=== PATIENT | male | born 1985 | race Caucasian/White ===

== ENCOUNTER 2020-08-27 09:03 | Emergency (ER) | payer OTHER ==
[~2020-08-27] VITALS: Ht 193 cm; Wt 95.5 kg
[2020-08-27 09:16] VITALS: BP 134/79
--- NOTE | 2020-08-27 09:25 | PHYS DOC ---
Past History Past Medical History: No Pertinent History Past Surgical History: No Surgical History Alcohol Use: None General Adult EDM: Chief Complaint: HAND PROBLEM HPI: HPI: Patient is a 35-year-old male coming in for right hand pain. Patient slipped on ice and caught himself with his right hand just prior to arrival. Patient is right-handed. Says he has some pain in his shoulder but is minimal. Has been icing his hand and complaining of the pain over the fourth and fifth met acarpals. Has a small abrasion to the lateral aspect of his fourth finger, patient states his tetanus is up-to-date within the last 5 years Review of Systems: Review of Systems: All other systems within normal limits except for as noted in the HPI Allergies: Allergies: Allergies Coded Allergies Type Severity Reaction Last Updated Verified No Known Drug Allergies 08/27/20 No Physical Exam: PE: Constitutional: Well developed, well nourished, no acute distress, non-toxic appearance. [] HENT: Normocephalic, atraumatic, bilateral external ears normal, nose normal. [] Eyes: PERRLA, conjunctiva normal, no discharge. [] Neck: No rigidity, supple, no stridor. [] Cardiovascular: Regular rate and rhythm, brisk cap refill [] Lungs & Thorax: Non labored symmetric respirations, no tachypnea or respiratory distress [] Abdomen: Soft, nondistended. Skin: Warm, dry, no erythema, no rash. Small abrasion to right fourth finger [] Extremities: No deformities, range of motion grossly intact, no lower extremity edema. Full range of motion of right hand, tenderness over fourth and fifth metacarpals. No shortening of fourth or fifth knuckles when making a fist. [] Neurologic: Alert and oriented X 3, no focal deficits noted. [] Psychologic: Affect normal, judgement normal, mood normal. [] Current Patient Data: Vital Signs: Vital Signs Date Time Temp Pulse Resp B/P (MAP) Pulse Ox O2 Delivery O2 Flow Rate FiO2 08/27/20 09:16 50 18 134/79 (97) 97 EKG: EKG: [] Radiology/Procedures: Radiology/Procedures: PROCEDURE: HAND RIGHT 3V PROCEDURE: XR HAND_RIGHT 3 VIEWS STUDY DATE: 08/27/2020 CLINICAL INDICATION / HISTORY: Reason: fall, 4th and 5th metacarpal pain / Spl. Instructions: / History: . TECHNIQUE: PA, lateral and oblique views of the right hand. COMPARISON: None FINDINGS: An oblique fracture through the shaft of the fourth metacarpal is present with minimal displacement. Otherwise, no fracture or dislocation is identified. The bone density is normal. The joint spaces are maintained, and there are no erosions to suggest an inflammatory arthropathy. The soft tissues show minimal associated soft tissue swelling.. IMPRESSION: Acute oblique fracture through the fourth metacarpal shaft with minimal displacement.[] Heart Score: Risk Factors: Risk Factors: DM, Current or recent (<one month) smoker, HTN, HLP, family history of CAD, obesity. Risk Scores: Score 0 - 3: 2.5% MACE over next 6 weeks - Discharge Home Score 4 - 6: 20.3% MACE over next 6 weeks - Admit for Clinical Observation Score 7 - 10: 72.7% MACE over next 6 weeks - Early Invasive Strategies Course & Med Decision Making: Course & Med Decision Making Discussed options for splinting versus anette taping for uncomplicated metacarpal fracture. Patient opted for anette taping. Will follow up with his primary care Zaida Disclaimer: Zaida Disclaimer: This electronic medical record was generated, in whole or in part, using a voice recognition dictation system. Departure Departure: Impression: Primary Impression: Fracture of fourth metacarpal bone of right hand Disposition: 01 DC HOME SELF CARE/HOMELESS Condition: STABLE Referrals: PCP,UNKNOWN (PCP) [facility] Patient Instructions: Metacarpal Fracture-SportsMed Scripts Tramadol Hcl (TRAMADOL HCL) 50 Mg Tablet 50 MG PO PRN Q6HRS PRN for PAIN for 3 Days, #10 TAB Prov: ROBBIE LILLY MD 08/27/20 ROBBIE LILLY MD Aug 27, 2020 09:25
--- NOTE | 2020-08-27 09:42 | RAD ---
PROCEDURE: XR HAND_RIGHT 3 VIEWS STUDY DATE: 08/27/2020 CLINICAL INDICATION / HISTORY: Reason: fall, 4th and 5th metacarpal pain / Spl. Instructions: / Hist ory: . TECHNIQUE: PA, lateral and oblique views of the right hand. COMPARISON: None FINDINGS: An oblique fracture through the shaft of the fourth metacarpal is present with minimal disp lacement. Otherwise, no fracture or dislocation is identified. The bone density is normal. The joint spaces are maintained, and there are no erosions to suggest an inflammatory arthropathy. The soft tis sues show minimal associated soft tissue swelling.. IMPRESSION: Acute oblique fracture through the fourth metacarpal shaft with minimal displacement. Electronically signed by: An Alvarado MD (08/27/2020 9:39 AM) [facility] [place]
[2020-08-27] MEDS ORDERED: TRAM50TA PO (09:52)
== END 2020-08-27 10:04 | disposition home or self-care (01) ==
LOC: ER 09:03
DX: S62.324A Displaced fracture of shaft of fourth metacarpal bone, right hand, initial encounter for closed fracture (principal); W00.0XXA Fall on same level due to ice and snow, initial encounter; Y93.89 Activity, other specified; Y92.89 Other specified places as the place of occurrence of the external cause; Y99.8 Other external cause status
CPT/HCPCS: 73130; 99283

== ENCOUNTER → 2020-09-05 | Outpatient (CLI) | payer OTHER ==
[2020-08-27 09:16] VITALS: BP 134/79
[~2020-09-05] MED LIST: TRAM50TA PO
--- NOTE | 2020-09-05 17:26 | RAD ---
EXAM: Right hand, 3 views. HISTORY: Pain. COMPARISON: None. FINDINGS: 3 views of the right hand are obtained. There is a mildly displaced oblique fracture of the fourth metacarpal. There is radial deviation of the fourth phalanx which is likely positional due to bandaging. No foreign body is seen. IMPRESSION: Mildly displaced oblique fracture of the fourth metacarpal. Electronically signed by: Mira Gotti MD (09/05/2020 5:24 PM) [id number]
== END ==
LOC: DXRAD 15:56
PROVIDERS: ATTEND Physician Assistant
DX: S62.304A Unspecified fracture of fourth metacarpal bone, right hand, initial encounter for closed fracture (principal); X58.XXXA Exposure to other specified factors, initial encounter; Y93.89 Activity, other specified; Y92.89 Other specified places as the place of occurrence of the external cause; Y99.8 Other external cause status
CPT/HCPCS: 73130

== ENCOUNTER → 2020-09-26 | Outpatient (CLI) | payer OTHER ==
[2020-08-27 09:16] VITALS: BP 134/79
--- NOTE | 2020-09-26 15:36 | RAD ---
XR HAND_RIGHT 3 VIEWS 09/26/2020 1:55 PM INDICATION: Hand pain COMPARISON: 09/05/2020 TECHNIQUE: 3 views of the right hand are provided. FINDINGS/ IMPRESSION: Mildly displaced fracture, obliquely oriented through the fourth metacarpal of the right hand. No def inite intra-articular extension. Soft tissue swelling appears to be improving. There is minor osseous bridging noted. Electronically signed by: Kaylah Reyes MD (09/26/2020 3:08 PM) [id number]
== END ==
LOC: DXRAD 13:39
PROVIDERS: ATTEND Physician Assistant
DX: S62.304A Unspecified fracture of fourth metacarpal bone, right hand, initial encounter for closed fracture (principal); M79.89 Other specified soft tissue disorders; X58.XXXA Exposure to other specified factors, initial encounter; Y93.89 Activity, other specified; Y92.89 Other specified places as the place of occurrence of the external cause; Y99.8 Other external cause status
CPT/HCPCS: 73130

== ENCOUNTER → 2020-10-24 | Outpatient (CLI) | payer OTHER ==
--- NOTE | 2020-10-24 21:26 | RAD ---
EXAM: PA, oblique and lateral views right hand DATE: 10/24/2020 1:24 PM INDICATION: Reason: RIGHT HAND PAIN, FU FX / Spl. Instructions: / History: COMPARISON: No Prior FINDINGS/ IMPRESSION: Progressively healing oblique fracture of the fourth metacarpal is in stable alignment. No new fracture is seen. Electronically signed by: Genaro Schultz MD (10/24/2020 9:24 PM) [id number]
== END ==
LOC: DXRAD 13:15
PROVIDERS: ATTEND Physician Assistant
DX: S62.354D Nondisplaced fracture of shaft of fourth metacarpal bone, right hand, subsequent encounter for fracture with routine healing (principal); X58.XXXD Exposure to other specified factors, subsequent encounter
CPT/HCPCS: 73130